=== PATIENT | male | born 1965 | race Caucasian/White ===

== ENCOUNTER 2020-09-21 22:03 | Emergency (ER) | payer OTHER ==
--- OUTSIDE RECORDS SUMMARY | 2020-09-21 22:05 | XMS REPORT | Continuity of Care Document ---
:[address] [facility] t Address [facility] [address] Fernando. [address] [place] [id number] Care Team Providers Name Role Phone DR LILY Attending Clinician Unavailable DR LILY Admitting Clinician Unavailable Problems This patient has no known problems. Allergies, Adverse Reactions, Alerts This patient has no known allergies or adverse reactions. Medications This patient has no known medications. Procedures This patient has no known procedures. Encounters Start End Encounter Admission Attending Care Care Encounter Source Date/Time Date/Time Type Type Clinicians Facility Department ID 2020-09-02 2020-09-02 Outpatient Dean BAUTISTA Dean [facility] [id number] 04:36:00 07:44:00 [facility] Results This patient has no known results.
[2020-09-21 23:03] LABS: Protime INR 0.91
[2020-09-21 23:04] LABS: Absolute Lymphocytes (CBC) 2.9 K/uL (0.7-4.9); Hematocrit 42.3 % (39.6-49.0); Lymphocytes % 28.4 % (15.3-44.8); MPV 8.7 fL (7.6-11.3); RBC Red Blood Cell Count 4.74 M/uL (4.33-5.43)
[2020-09-21 23:15] LABS: ALT/SGPT 26 U/L (12-78); AST/SGOT 15 U/L (15-37); Albumin 3.6 g/dL (3.4-5.0); Alkaline Phosphatase 72 U/L (45-117); BUN Blood Urea Nitrogen 21 mg/dL (7-18); Bicarbonate 31 mmol/L (21-32); Bilirubin Direct < 0.1 mg/dL (0-0.2); Bilirubin Total 0.3 mg/dL (0.2-1.0); Glucose Level 103 mg/dL (74-106); Magnesium 2.2 mg/dL (1.8-2.4); NT PRO-BNP 10 pg/mL (<125); Potassium 4.4 mmol/L (3.5-5.1); Protein, Total 6.8 g/dL (6.4-8.2); Sodium Level 142 mmol/L (136-145); Troponin (Emerg Dept Use Only) < 0.02 ng/mL (0.0-0.045)
--- NOTE | 2020-09-21 23:16 | RAD REPORT ---
EXAM DESCRIPTION: Radha Single View09/21/2020 10:49 pm CLINICAL HISTORY: Chest pain COMPARISON: none FINDINGS: The lungs appear clear of acute infiltrate. The heart is normal size IMPRESSION: No acute abnormalities displayed
--- NOTE | 2020-09-22 00:51 | ER ---
Nurse's Notes [facility] Name: Marques Llanos Age: 55 yrs Sex: Male : 1965 Arrival Date: 09/21/2020 Time: 22:03 Bed 4 Private MD: Diagnosis: Paresthesia of skin Presentation: 09/21 22:16 Chief complaint: Patient states: approx 90 minutes ago he started having some tingling bb and numbness to his left arm was concerned about a OR so came to ED pt states only other symptom is a slight headache. Coronavirus screen: At this time, the client does not indicate any symptoms associated with coronavirus-19. Ebola Screen: No symptoms or risks identified at this time. Initial Sepsis Screen: Does the patient meet any 2 criteria? No. Patient's initial sepsis screen is negative. Does the patient have a suspected source of infection? No. Patient's initial sepsis screen is negative. Risk Assessment: Do you want to hurt yourself or someone else? Patient reports no desire to harm self or others. Onset of symptoms was September 21, 2020. 22:16 Method Of Arrival: Ambulatory bb 22:16 Acuity: MICHELLE 3 bb Historical: - Allergies: 22:24 Morphine; bb - Home Meds: 22:24 candesartan oral oral [Active]; anoro ellipta [Active]; Abilify oral oral [Active]; bb levothyroxine oral [Active]; Xanax Oral [Active]; - PMHx: 22:24 Hypertension; COPD; Hypothyroidism; Anxiety; Depression; bb - PSHx: 22:24 Cholecystectomy; Hernia repair; ankle surgery; fusion of lumbar discs; bilateral club bb feet; - Immunization history:: Adult Immunizations up to date, Flu vaccine is not up to date. - Social history:: Smoking status: Patient reports the use of cigarette tobacco products, denies chronic smoking, but will smoke occasionally, Patient uses alcohol, but reports only rare drinking. Patient/guardian denies using street drugs. Screenin:27 Abuse screen: Denies threats or abuse. Denies injuries from another. Nutritional rv screening: No deficits noted. Tuberculosis screening: No symptoms or risk factors identified. Fall Risk None identified. Assessment: 22:26 General: Appears comfortable, Behavior is calm, cooperative. Pain: Denies pain. Neuro: rv Level of Consciousness is awake, alert, obeys commands, Oriented to person, place, time, situation. Cardiovascular: Patient's skin is warm and dry. Respiratory: Airway is patent Respiratory effort is even, unlabored, Breath sounds are clear bilaterally. Derm: Skin is intact. 23:22 Reassessment: Patient appears in no apparent distress at this time. Patient and/or sg family updated on plan of care and expected duration. Pain level reassessed. Patient is alert, oriented x 3, equal unlabored respirations, skin warm/dry/pink. Que MCLEOD at bedside assessing pt and updating pt on results and POC at this time. awaiting new orders, awaiting dispo, will continue to monitor. 23:48 Reassessment: awaiting order time for second troponin per Don MCLEOD, pt and pt family sg updated on POC, stated understanding. Vital Signs: 22:16 BP 124 / 77; Pulse 71; Resp 16 S; Temp 98.5(O); Pulse Ox 97% on R/A; Weight 104.33 kg bb (R); Height 5 ft. 9 in. (175.26 cm) (R); Pain 0/10; 23:12 BP 114 / 78; Pulse 68; Resp 16; Pulse Ox 96% on R/A; sg 22:16 Body Mass Index 33.97 (104.33 kg, 175.26 cm) bb ED Course: 22:03 Patient arrived in ED. ds1 22:11 Don Scott PA is PHCP. jr8 22:11 Chuy Kc MD is Attending Physician. jr8 22:18 Guzman Pereyra, ANDREW is Primary Nurse. sg 22:18 Triage completed. bb 22:25 Arm band placed on. EKG completed in triage. Results shown to MD. bb 22:26 Initial lab(s) drawn, by ok, sent to lab. EKG done, by ED staff, reviewed by Don MCLEOD. Inserted saline lock: 20 gauge in right antecubital area, using aseptic technique. Blood collected. 22:27 Patient has correct armband on for positive identification. telemetry monitor on. Pulse rv ox on. NIBP on. 22:49 XRAY Chest (1 view) In Process Unspecified. EDMS Administered Medications: No medications were administered Outcome: 09/22 00:51 Discharge ordered by MD. rojas 00:58 Patient left the ED. ar5 Signatures: Dispatcher [employer] EDMS Guzman Pereyra RN RN sg Dayana Middleton ds1 Mar Hicks RN RN Don Webster PA PA jr8 Vicente, Ronaldo, RN RN Annie Perez ar5 Corrections: (The following items were deleted from the chart) 09/21 22:25 22:16 BP 124 / 77; Pulse 16bpm; Resp 71bpm; Spontaneous; Pulse Ox 97% RA; Temp 98.5F bb Oral; 104.33 kg Reported; Height 5 ft. 9 in. Reported; BMI: 33.9; Pain 0/10; bb
--- NOTE | 2020-09-22 00:51 | EDPHYS ---
Physician Documentation [facility] Name: Marques Llanos Age: 55 yrs Sex: Male : 1965 Arrival Date: 09/21/2020 Time: 22:03 Bed 4 Private MD: ED Physician Chuy Kc HPI: 09/21 22:22 This 55 yrs old Male presents to ER via Ambulatory with complaints of L Arm jr8 Tingling. 22:22 The patient presents for L arm tingling starting at 8:30 pm this evening. States that jr8 the sensation starts at his shoulder and goes down to his elbow. HX of HTN and COPD. Denies CP, SOB, confusion, dizziness, or any other symptoms.. 22:40 Onset: The symptoms/episode began/occurred acutely, today. The patient has not jr8 experienced similar symptoms in the past. The patient has not recently seen a physician. Historical: - Allergies: 22:24 Morphine; bb - Home Meds: 22:24 candesartan oral oral [Active]; anoro ellipta [Active]; Abilify oral oral [Active]; bb levothyroxine oral [Active]; Xanax Oral [Active]; - PMHx: 22:24 Hypertension; COPD; Hypothyroidism; Anxiety; Depression; bb - PSHx: 22:24 Cholecystectomy; Hernia repair; ankle surgery; fusion of lumbar discs; bilateral club bb feet; - Immunization history:: Adult Immunizations up to date, Flu vaccine is not up to date. - Social history:: Smoking status: Patient reports the use of cigarette tobacco products, denies chronic smoking, but will smoke occasionally, Patient uses alcohol, but reports only rare drinking. Patient/guardian denies using street drugs. ROS: 22:40 Eyes: Negative for injury, pain, redness, and discharge, ENT: Negative for injury, jr8 pain, and discharge, Neck: Negative for injury, pain, and swelling, Cardiovascular: Negative for chest pain, palpitations, and edema, Respiratory: Negative for shortness of breath, cough, wheezing, and pleuritic chest pain, Abdomen/GI: Negative for abdominal pain, nausea, vomiting, diarrhea, and constipation, Back: Negative for injury and pain, MS/Extremity: Negative for injury and deformity, Skin: Negative for injury, rash, and discoloration. 22:40 Neuro: Positive for numbness, of the left arm. Exam: 22:40 Eyes: Pupils equal round and reactive to light, extra-ocular motions intact. Lids and jr8 lashes normal. Conjunctiva and sclera are non-icteric and not injected. Cornea within normal limits. Periorbital areas with no swelling, redness, or edema. ENT: Nares patent. No nasal discharge, no septal abnormalities noted. Tympanic membranes are normal and external auditory canals are clear. Oropharynx with no redness, swelling, or masses, exudates, or evidence of obstruction, uvula midline. Mucous membranes moist. Neck: Trachea midline, no thyromegaly or masses palpated, and no cervical lymphadenopathy. Supple, full range of motion without nuchal rigidity, or vertebral point tenderness. No Meningismus. Cardiovascular: Regular rate and rhythm with a normal S1 and S2. No gallops, murmurs, or rubs. Normal PMI, no JVD. No pulse deficits. Respiratory: Lungs have equal breath sounds bilaterally, clear to auscultation and percussion. No rales, rhonchi or wheezes noted. No increased work of breathing, no retractions or nasal flaring. Abdomen/GI: Soft, non-tender, with normal bowel sounds. No distension or tympany. No guarding or rebound. No evidence of tenderness throughout. Back: No spinal tenderness. No costovertebral tenderness. Full range of motion. Skin: Warm, dry with normal turgor. Normal color with no rashes, no lesions, and no evidence of cellulitis. MS/ Extremity: Pulses equal, no cyanosis. Neurovascular intact. Full, normal range of motion. Neuro: Awake and alert, GCS 15, oriented to person, place, time, and situation. Cranial nerves II-XII grossly intact. Motor strength 5/5 in all extremities. Sensory grossly intact. Cerebellar exam normal. Normal gait. Vital Signs: 22:16 BP 124 / 77; Pulse 71; Resp 16 S; Temp 98.5(O); Pulse Ox 97% on R/A; Weight 104.33 kg bb (R); Height 5 ft. 9 in. (175.26 cm) (R); Pain 0/10; 23:12 BP 114 / 78; Pulse 68; Resp 16; Pulse Ox 96% on R/A; sg 22:16 Body Mass Index 33.97 (104.33 kg, 175.26 cm) bb MDM: 22:11 Patient medically screened. 09/22 00:49 Data reviewed: vital signs, nurses notes, lab test result(s), EKG, radiologic studies, jr8 plain films, and as a result, I will discharge patient. Data interpreted: Pulse oximetry: on room air is 96 %. Interpretation: normal. Counseling: I had a detailed discussion with the patient and/or guardian regarding: the historical points, exam findings, and any diagnostic results supporting the discharge/admit diagnosis, lab results, radiology results, the need for outpatient follow up, a family practitioner, to return to the emergency department if symptoms worsen or persist or if there are any questions or concerns that arise at home. Response to treatment: the patient's symptoms have resolved after treatment. ED course: Patients symptoms resolved. x2 troponin negative. No focal deficits on exam. VS stable. Will d/c home to f/u with PCP . 09/21 22:21 Order name: Basic Metabolic Panel; Complete Time: 23:16 09/21 22:21 Order name: CBC with Diff; Complete Time: 23:07 09/21 22:21 Order name: LFT's; Complete Time: 23:16 8 09/21 22:21 Order name: Magnesium; Complete Time: 23:16 09/21 22:21 Order name: NT PRO-BNP; Complete Time: 23:16 09/21 22:21 Order name: PT-INR; Complete Time: 23:10 09/21 22:21 Order name: Troponin (emerg Dept Use Only); Complete Time: 23:16 09/21 22:21 Order name: XRAY Chest (1 view); Complete Time: 23:18 09/21 22:21 Order name: EKG; Complete Time: 22:21 8 09/21 22:21 Order name: Cardiac monitoring; Complete Time: 22:25 09/21 22:21 Order name: EKG - Nurse/Tech; Complete Time: 22:25 09/21 22:21 Order name: IV Saline Lock; Complete Time: 22:26 09/21 22:21 Order name: Labs collected and sent; Complete Time: 22:26 8 09/21 23:42 Order name: Troponin (emerg Dept Use Only); Complete Time: 00:49 8 09/21 22:21 Order name: O2 Per Protocol; Complete Time: 22:26 8 09/21 22:21 Order name: O2 Sat Monitoring; Complete Time: 22:8 Administered Medications: No medications were administered Disposition: 02:25 Co-signature as Attending Physician, Chuy Kc MD. pkkristin Disposition: 09/22/20 00:51 Discharged to Home. Impression: Paresthesia of skin. - Condition is Stable. - Discharge Instructions: Paresthesia, Peripheral Neuropathy. - Medication Reconciliation Form, Thank You Letter, Antibiotic Education, Prescription Opioid Use form. - Follow up: Private Physician; When: 2 - 3 days; Reason: Recheck today's complaints, Continuance of care, Re-evaluation by your physician. - Problem is new. - Symptoms have improved. Signatures: Dispatcher [employer] EDChuy Thomas MD MD pkl Ballard, Brenda, RN RN Don Webster PA PA jr8 Annie Yoo ar5 Corrections: (The following items were deleted from the chart) 00:58 00:51 09/22/2020 00:51 Discharged to Home. Impression: Paresthesia of skin. Condition ar5 is Stable. Forms are Medication Reconciliation Form, Thank You Letter, Antibiotic Education, Prescription Opioid Use. Follow up: Private Physician; When: 2 - 3 days; Reason: Recheck today's complaints, Continuance of care, Re-evaluation by your physician. Problem is new. Symptoms have improved. jr8
[2020-09-22 01:07] VITALS: TEMP 98.5
[2020-09-22 01:09] VITALS: BP 114/78; O2SAT 96
== END 2020-09-22 00:58 | disposition home or self-care (01) ==
LOC: ER 22:03
DX: R20.2 Paresthesia of skin (principal); I10 Essential (primary) hypertension; J44.9 Chronic obstructive pulmonary disease, unspecified; F41.8 Other specified anxiety disorders; F17.210 Nicotine dependence, cigarettes, uncomplicated; Z88.5 Allergy status to narcotic agent
CPT/HCPCS: 36415; 71045; 80048; 80076; 83735; 83880; 84484; 85025; 85610; 93005; 99284